=== PATIENT | female | born 1960 | race African-American/Black ===

== ENCOUNTER 2022-06-25 13:28 | Emergency (ER) | payer MEDICAID, OTHER ==
[~2022-06-25] VITALS: Ht 160 cm; Wt 76.0 kg
[2022-06-25 13:29] VITALS: BP 132/78
[2022-06-25] MEDS ORDERED: KETOROLAC 30MG/ML VIAL IM ONE (17:15)
[2022-06-25] MEDS ORDERED: ACETAMINOPHEN 325MG TABLET PO ONE (17:15)
[2022-06-25] MEDS ORDERED: LIDOCAINE 5% PATCH TOP SCH (17:15)
[2022-06-25] MEDS ORDERED: NAPR-681 MT (18:16)
== END 2022-06-25 18:45 | disposition home or self-care (01) ==
LOC: ER 13:28
DX: S79.811A Other specified injuries of right hip, initial encounter (principal); M79.661 Pain in right lower leg; M19.90 Unspecified osteoarthritis, unspecified site; F11.10 Opioid abuse, uncomplicated; Z87.828 Personal history of other (healed) physical injury and trauma; W01.0XXA Fall on same level from slipping, tripping and stumbling without subsequent striking against object, initial encounter; Y93.89 Activity, other specified; Y92.018 Other place in single-family (private) house as the place of occurrence of the external cause
CPT/HCPCS: 96372; 99283; J1885; Z7610